=== PATIENT | male | born 1995 | race African-American/Black ===

== ENCOUNTER 2022-05-18 10:22 | Emergency (ER) | payer OTHER ==
[2022-05-18 10:34] VITALS: BP 153/81; PULSE 69; RESP 18; TEMP 98.3; BMI 28.4
[2022-05-18 12:26] LABS: BASO % 0.6 % (0-2.0); EOS % 1.9 % (0-4.5); HEMATOCRIT 42.4 % (35.4-49); HEMOGLOBIN 14.5 GM/dL (11.7-16.9); LYMPH % 32.1 % (8-40); MCH 29.4 pg (25.7-33.7); MCHC 34.1 g/dl (32.0-35.9); MEAN CELL VOLUME 86.3 fl (80-96); MONO % 8.4 % (3.8-10.2); PLATELET COUNT 163 10^3/uL (134-434); RBC 4.92 M/mm3 (4.00-5.60); WHITE BLOOD COUNT 4.8 K/mm3 (4.0-10.0)
[2022-05-18 12:46] LABS: CALCIUM 9.1 mg/dL (8.5-10.1)
[2022-05-18 12:47] LABS: ALBUMIN 3.9 g/dl (3.4-5.0); BLOOD UREA NITROGEN 13.8 mg/dL (7-18); MAGNESIUM 2.1 mg/dL (1.8-2.4)
[2022-05-18 12:50] LABS: CREATININE 1.1 mg/dL (0.55-1.3)
[2022-05-18 12:52] LABS: BILIRUBIN,TOTAL 0.4 mg/dL (0.2-1); TOT PROT 7.8 g/dl (6.4-8.2)
== END 2022-05-18 15:07 | disposition home or self-care (01) ==
LOC: JER 10:22
DX: R00.2 Palpitations (principal)
CPT/HCPCS: 36415; 71046-TC-FY; 80053; 83735; 84439; 84443; 85025; 85379; 93005; 93010; 93308; 99285-25

== ENCOUNTER 2024-01-21 19:09 | Emergency (ER) | payer OTHER ==
[2024-01-21 19:19] VITALS: BP 137/78; PULSE 83; RESP 20; TEMP 97.7; BMI 30.4
[2024-01-21] MEDS ORDERED: ACETAMINOPHEN 500 MG TABLET (FP) ONE (20:50)
[2024-01-21 21:00] LABS: BASO % 0.3 % (0-2.0); EOS % 1.4 % (0-4.5); HEMATOCRIT 44.1 % (35.4-49); HEMOGLOBIN 14.9 GM/dL (11.7-16.9); LYMPH % 32.6 % (8-40); MCH 29.6 pg (25.7-33.7); MCHC 33.8 g/dl (32.0-35.9); MEAN CELL VOLUME 87.7 fl (80-96); MEAN PLT VOLUME 9.6 fl (7.5-11.1); MONO % 8.2 % (3.8-10.2); NEUT % 57.5 % (42.8-82.8); PLATELET COUNT 174 10^3/uL (134-434); RBC 5.03 M/mm3 (4.00-5.60); RDW 13.6 % (11.9-15.9); WHITE BLOOD COUNT 7.4 K/mm3 (4.0-10.0)
[2024-01-21 21:20] LABS: POTASSIUM 3.9 mmol/L (3.5-5.1)
[2024-01-21 21:22] LABS: CALCIUM 9.4 mg/dL (8.5-10.1)
[2024-01-21 21:23] LABS: ALBUMIN 3.9 g/dl (3.4-5.0)
[2024-01-21 21:26] LABS: CREATININE 1.2 mg/dL (0.55-1.3)
[2024-01-21 21:28] LABS: BILIRUBIN,TOTAL 0.4 mg/dL (0.2-1); BLOOD UREA NITROGEN 14.2 mg/dL (7-18); TOT PROT 7.8 g/dl (6.4-8.2)
[2024-01-21] MEDS: ACETAMINOPHEN 500 MG TABLET (FP) PO ONE (21:53)
== END 2024-01-22 00:08 | disposition home or self-care (01) ==
LOC: JER 19:09
DX: R07.89 Other chest pain (principal)
CPT/HCPCS: 0241U-QW; 36415; 71046-TC-FY; 71275-TC; 80053; 84484; 85025; 85379; 93308; 99285-25; Q9967